=== PATIENT | female | born 1990 | race Hispanic/Latino ===

== ENCOUNTER 2018-03-25 20:50 | Emergency (ER) | payer SELFPAY ==
[2018-03-25 21:57] VITALS: BP 139/94; PULSE 108; RESP 20; TEMP 98; O2SAT 99
[2018-03-25 22:52] LABS: SQUAMOUS EPITHIAL 1 /hpf (0-5); URINE BACTERIA RARE (<OCC); URINE BILIRUBIN NEGATIVE (NEGATIVE); URINE BLOOD 1+ (NEGATIVE); URINE CLARITY Hazy (Clear); URINE COLOR Amber (YELLOW); URINE GLUCOSE (UA) NORMAL (Normal); URINE LEUKOCYTE ESTERASE NEG Leu/uL (Negative); URINE PROTEIN NEGATIVE (NEGATIVE)
--- NOTE | 2018-03-26 00:27 | C.PDOC ---
History Of Present Illness 27 year old female is sent to the ED by PMD to rule out ectopic . Patient reports she is 4 weeks by date, her LMP was on 01/2018. Patient c/o vaginal spotting for the past 2 weeks. Patient was seen by her PMD where she had a positive test. Patient has an US done which did not show an IUP. However patient's betta HCG was trending up from her first test to the second. patient was sent to the ED for US to rule out ectopic. Patient denies fever, chills, nausea, vomit, diarrhea, vaginal discharge, weakness, numbness. Time Seen by Provider: 03/25/18 21:45 Chief Complaint (Nursing): Female Genitourinary History Per: Patient History/Exam Limitations: no limitations Onset/Duration Of Symptoms: Days (2 weeks) Current Symptoms Are (Timing): Still Present Quality Of Discomfort: Cramping Associated Symptoms: denies: Chills, Nausea, Vomiting, Diarrhea, Loss Of Appetite, Urinary Symptoms Recent travel outside of the [place]: No Additional History Per: EMS Abnormal Vaginal Bleeding: Yes Last Menstral Period: 01/2018 Past Medical History Reviewed: Historical Data, Nursing Documentation, Vital Signs Vital Signs: Last Vital Signs Temp 98 F 03/25/18 21:12 Pulse 108 H 03/25/18 21:12 Resp 20 03/25/18 21:12 BP 139/94 H 03/25/18 21:12 Pulse Ox 99 03/25/18 21:12 - Medical History PMH: No Chronic Diseases Surgical History: No Surg Hx Family History: States: Unknown Family Hx - Social History Hx Alcohol Use: No Hx Substance Use: Yes (Uses Ecstasy occasionally) - Immunization History Hx Tetanus Toxoid Vaccination: No Hx Influenza Vaccination: No Hx Pneumococcal Vaccination: No Review Of Systems Constitutional: Negative for: Fever, Chills Cardiovascular: Negative for: Chest Pain Respiratory: Negative for: Shortness of Breath Gastrointestinal: Positive for: Abdominal Pain. Negative for: Nausea, Vomiting Genitourinary: Positive for: Vaginal Bleeding. Negative for: Dysuria, Hematuria Musculoskeletal: Negative for: Back Pain Skin: Negative for: Rash Neurological: Negative for: Weakness, Numbness Physical Exam - Physical Exam Appears: Non-toxic, No Acute Distress Skin: Normal Color, Warm, Dry Head: Atraumatic, Normacephalic Eye(s): bilateral: Normal Inspection Neck: Normal ROM, Supple Chest: Symmetrical Cardiovascular: Rhythm Regular Respiratory: Normal Breath Sounds, No Rales, No Rhonchi, No Wheezing Gastrointestinal/Abdominal: Soft, Tenderness (suprapubic), No Guarding, No Rebound Pelvic: Normal External Exam, Vaginal Discharge (mild bloody dc, no active bleeding) Extremity: Normal ROM, No Tenderness, No Swelling Neurological/Psych: Oriented x3, Normal Speech, Normal Cognition Gait: Steady ED Course And Treatment - Laboratory Results Lab Results: Urine Color [place] (YELLOW) 03/25/18 22:44 Urine Clarity Hazy (Clear) 03/25/18 22:44 Urine pH 6.0 (5.0-8.0) 03/25/18 22:44 Ur Specific [place] 1.017 (1.003-1.030) 03/25/18 22:44 Urine Protein Negative mg/dL (NEGATIVE) 03/25/18 22:44 Urine Glucose (UA) Normal mg/dL (Normal) 03/25/18 22:44 Urine Ketones 1+ mg/dL (NEGATIVE) H 03/25/18 22:44 Urine Blood 1+ (NEGATIVE) H 03/25/18 22:44 Urine Nitrate Negative (NEGATIVE) 03/25/18 22:44 Urine Bilirubin Negative (NEGATIVE) 03/25/18 22:44 Urine Urobilinogen 4.0 mg/dL (0.2-1.0) H 03/25/18 22:44 Ur Leukocyte Esterase Neg [place]/uL (Negative) 03/25/18 22:44 Urine WBC (Auto) 5 /hpf (0-5) 03/25/18 22:44 Urine RBC (Auto) 1 /hpf (0-3) 03/25/18 22:44 Ur Squamous Epith Cells 1 /hpf (0-5) 03/25/18 22:44 Urine Bacteria Rare (<OCC) 03/25/18 22:44 Beta HCG, Quant 3398.20 mIU/ML 03/25/18 22:44 O2 Sat by Pulse Oximetry: 99 (ON RA) Pulse Ox Interpretation: Normal - CT Scan/US pelvic US Other Rad Studies (CT/US): Read By Radiologist, Radiology Report Reviewed CT/US Interpretation: Date of service: 03/25/2018. HISTORY: vaginal spotting and suprapubic pain. COMPARISON: None available. TECHNIQUE: Transabdominal and transvaginal pelvic ultrasound was performed. FINDINGS: UTERUS: Measures 7.5 x 4.1 x 4.8 cm. Anteverted, normal in size and appearance. No fibroid or other mass lesion seen. ENDOMETRIUM: Measures 8.0 mm in diameter. The central endometrial echo complex is normal in appearance. No evidence of intrauterine gestational sac. CERVIX: A nabothian cyst is identified in the posterior wall. RIGHT OVARY: Measures 2.4 x 1.3 x 1.8 cm. No solid mass. Normal flow. LEFT OVARY: Measures 3.0 x 2.1 x 2.7 cm. No solid mass. Normal flow. There is a 1.6 x 1.2 x 1.1 cm cystic structure likely a simple cyst/involuting follicle. FREE FLUID: No significant free fluid noted. OTHER FINDINGS: None. IMPRESSION: No evidence of intrauterine gestational sac. No adnexal mass. No free fluid in the pelvis. Ectopic cannot be entirely excluded in the setting of positive beta HCG. Clinical and ultrasound follow-up is recommended. Progress Note: Plan: - Labs. - UA. - Us pelvic Disposition Counseled Patient/Family Regarding: Diagnosis, Need For Followup - Disposition Referrals: Your HUMAN SERVICES PROFESSIONAL, Office [Other] Disposition: HOME/ ROUTINE Disposition Time: 00:48 Condition: STABLE Additional Instructions: Please follw up with your OB tomorrow or Return to ER if severe pain, dizziness, Heavy bleeding or worse Instructions: Threatened Miscarriage (DC) Forms: Work/School/Gym Excuse, [facility] (Bangladeshi) - Clinical Impression Clinical Impression: Threatened - PA / ROLL CUTTER / Resident Statement MD/DO has reviewed & agrees with the documentation as recorded. - Scribe Statement The provider has reviewed the documentation as recorded by the Scribe Fco Johnson All medical record entries made by the Carroll were at my direction and personally dictated by me. I have reviewed the chart and agree that the record accurately reflects my personal performance of the history, physical exam, medical decision making, and the department course for this patient. I have also personally directed, reviewed, and agree with the discharge instructions and disposition.
--- NOTE | 2018-03-26 00:37 | US ---
Date of service: 03/25/2018 HISTORY: vaginal spotting and suprapubic pain COMPARISON: None available. TECHNIQUE: Transabdominal and transvaginal pelvic ultrasound was performed. FINDINGS: UTERUS: Measures 7.5 x 4.1 x 4.8 cm. Anteverted, normal in size and appearance. No fibroid or other mass lesion seen. ENDOMETRIUM: Measures 8.0 mm in diameter. The central endometrial echo complex is normal in appearance. No evidence of intrauterine gestational sac. CERVIX: A nabothian cyst is identified in the posterior wall. RIGHT OVARY: Measures 2.4 x 1.3 x 1.8 cm. No solid mass. Normal flow. LEFT OVARY: Measures 3.0 x 2.1 x 2.7 cm. No solid mass. Normal flow. There is a 1.6 x 1.2 x 1.1 cm cystic structure likely a simple cyst/involuting follicle. FREE FLUID: No significant free fluid noted. OTHER FINDINGS: None. IMPRESSION: No evidence of intrauterine gestational sac. No adnexal mass. No free fluid in the pelvis. Ectopic cannot be entirely excluded in the setting of positive beta HCG. Clinical and ultrasound follow-up is recommended.
== END 2018-03-26 00:58 | disposition home or self-care (01) ==
LOC: C.ER 20:50
DX: O20.0 Threatened abortion (principal); Z3A.01 Less than 8 weeks gestation of pregnancy

== ENCOUNTER 2018-03-26 16:10 | Emergency (ER) | payer OTHER ==
[2018-03-26] MEDS ORDERED: Sodium Chloride 0.9% 1,000 ML IV ONE (19:53)
--- NOTE | 2018-03-26 19:55 | C.PDOC ---
History Of Present Illness 27 year old female sent in by Dr. Krishnan for admission and possible D/C for ectopic . Patient currently complains of lower abdominal pain and vaginal bleeding. She has been seen here several times for the same and was seen at Dr. Krishnan's office today. Denies nausea or vomiting. Chief Complaint (Nursing): Female Genitourinary History Per: Patient History/Exam Limitations: no limitations Onset/Duration Of Symptoms: Days Current Symptoms Are (Timing): Still Present Quality Of Discomfort: Unable To Describe Associated Symptoms: denies: Nausea, Vomiting Alleviating Factors: None Recent travel outside of the [place]: No Abnormal Vaginal Bleeding: Yes Past Medical History Reviewed: Historical Data, Nursing Documentation, Vital Signs Vital Signs: Last Vital Signs Temp 98.5 F 03/26/18 19:19 Pulse 118 H 03/26/18 19:19 Resp 22 03/26/18 19:19 BP 133/88 03/26/18 19:19 Pulse Ox 100 03/26/18 19:19 Family History: States: Unknown Family Hx - Social History Hx Alcohol Use: Yes Hx Substance Use: Yes (Uses Ecstasy occasionally) - Immunization History Hx Tetanus Toxoid Vaccination: No Hx Influenza Vaccination: No Hx Pneumococcal Vaccination: No Review Of Systems Constitutional: Negative for: Fever, Chills Cardiovascular: Negative for: Chest Pain, Palpitations Respiratory: Negative for: Cough, Shortness of Breath Gastrointestinal: Positive for: Abdominal Pain. Negative for: Nausea, Vomiting Genitourinary: Positive for: Vaginal Bleeding Neurological: Negative for: Weakness, Numbness Physical Exam - Physical Exam Appears: Non-toxic Skin: Normal Color, Warm, Dry Head: Atraumatic, Normacephalic Eye(s): bilateral: Normal Inspection Oral Mucosa: Moist Chest: Symmetrical, No Tenderness Cardiovascular: Rhythm Regular Respiratory: Normal Breath Sounds, No Rales, No Rhonchi, No Wheezing Gastrointestinal/Abdominal: Soft, Tenderness (Hypogastric), No Guarding, No Rebound Back: No CVA Tenderness Neurological/Psych: Oriented x3, Normal Speech ED Course And Treatment - Laboratory Results Result Diagrams: 03/26/18 20:19 03/26/18 20:19 O2 Sat by Pulse Oximetry: 100 (Room air) Pulse Ox Interpretation: Normal Progress Note: Blood work ordered. IV fluids administered. Dr. Krishnan called and notified. Disposition Discussed With : Vikram Krishnan Doctor Will See Patient In The: Office Counseled Patient/Family Regarding: Diagnosis - Disposition Referrals: Vikram Krishnan MD [Staff Provider] - Disposition: HOME/ ROUTINE Disposition Time: 02:32 Condition: STABLE Instructions: Ectopic (DC) Forms: [facility] (Yi) - POA Present On Arrival: None - Clinical Impression Clinical Impression: Ectopic without intrauterine - Scribe Statement The provider has reviewed the documentation as recorded by the Scribmariel Odonnell All medical record entries made by the Scribe were at my direction and personally dictated by me. I have reviewed the chart and agree that the record accurately reflects my personal performance of the history, physical exam, medical decision making, and the department course for this patient. I have also personally directed, reviewed, and agree with the discharge instructions and disposition.
[2018-03-26] MEDS ORDERED: Sodium Chloride 0.9% 1,000 ML ONE (20:22)
[2018-03-26 20:23] LABS: BASO # 0.1 K/uL (0.0-0.2); BASO % 0.5 % (0.0-2.0); EOS # 0.1 K/uL (0.0-0.7); EOS % 1.2 % (0.0-4.0); HEMOGLOBIN 13.9 g/dL (11.0-16.0); LYMPH # 1.9 K/uL (1.0-4.3); LYMPH % 19.3 % (20.0-40.0); MEAN CELL VOLUME 93.1 fL (81.0-99.0); MEAN CORPUSCULAR HEMOGLOBIN 31.4 pg (27.0-31.0); MEAN CORPUSCULAR HGB CONC 33.8 g/dL (33.0-37.0); MEAN PLATELET VOLUME 8.6 fL (7.2-11.7); MONO # 0.8 K/uL (0.0-0.8); MONO % 7.9 % (0.0-10.0); NEUT # 6.9 K/uL (1.8-7.0); NEUT % 71.1 % (50.0-75.0); RBC 4.43 Mil/uL (3.80-5.20); RED CELL DISTRIBUTION WIDTH 12.4 % (11.5-14.5); WHITE BLOOD COUNT 9.6 K/uL (4.8-10.8)
[2018-03-26 20:34] LABS: INR 1.2; PROTHROMBIN TIME 13.3 SECONDS (9.7-12.2)
[2018-03-26 20:38] LABS: ALB/GLOB RATIO 1.5 (1.0-2.1); ALBUMIN 4.8 g/dL (3.5-5.0); ALT/SGPT 21 U/L (9-52); AST/SGOT 15 U/L (14-36); BLOOD UREA NITROGEN 9 mg/dL (7-17); CALCIUM 9.4 mg/dl (8.6-10.4); GFR NON-AFRICAN AMERICAN > 60
[2018-03-27 02:55] VITALS: BP 115/78; PULSE 92; RESP 14; TEMP 98.2; O2SAT 98
--- NOTE | 2018-03-27 09:57 | US ---
Date of service: 03/26/2018 HISTORY: , bleeding COMPARISON: None available. TECHNIQUE: Transvaginal FINDINGS: UTERUS: Measures 7.5 x 4.1 x 5.0 cm. Normal in size and appearance. No fibroid or other mass lesion seen. ENDOMETRIUM: Measures 10 mm in diameter. No intrauterine gestational sac identified. Cannot exclude ectopic . Please correlate with serial beta HCG evaluation. CERVIX: No cervical abnormality identified. RIGHT OVARY: Measures 2.8 x 1.5 x 2.1 cm. No solid mass. Normal flow. LEFT OVARY: Measures 2.8 x 2.1 x 2.6 cm. No solid mass. Normal flow. FREE FLUID: No significant free fluid noted. OTHER FINDINGS: None. IMPRESSION: Unremarkable pelvic ultrasound examination. No intrauterine gestation identified. Cannot exclude ectopic on the basis of this examination, in the absence of an intrauterine gestational sac. The preliminary findings for this examination were reported by [facility] Radiology at 11:12 p.m. on 03/26/2018. There is concurrence of this report with the preliminary findings.
== END 2018-03-27 03:07 | disposition home or self-care (01) ==
LOC: C.ER 16:10
DX: O00.90 Unspecified ectopic pregnancy without intrauterine pregnancy (principal)
CPT/HCPCS: 76830; 80053; 84702; 85025; 85610; 85730; 86850; 86900; 99285; J7030; J8610

== ENCOUNTER 2018-03-28 13:30 | Emergency (ER) | payer OTHER ==
[2018-03-28 13:43] VITALS: TEMP 98; O2SAT 99
[2018-03-28 14:36] LABS: BASO % 0.3 % (0.0-2.0); EOS # 0.2 K/uL (0.0-0.7); EOS % 2.1 % (0.0-4.0); HEMOGLOBIN 13.4 g/dL (11.0-16.0); LYMPH # 1.6 K/uL (1.0-4.3); LYMPH % 17.7 % (20.0-40.0); MEAN CELL VOLUME 93.6 fL (81.0-99.0); MEAN CORPUSCULAR HEMOGLOBIN 31.7 pg (27.0-31.0); MEAN CORPUSCULAR HGB CONC 33.8 g/dL (33.0-37.0); MEAN PLATELET VOLUME 8.4 fL (7.2-11.7); MONO # 0.7 K/uL (0.0-0.8); MONO % 8.1 % (0.0-10.0); NEUT # 6.5 K/uL (1.8-7.0); NEUT % 71.8 % (50.0-75.0); RBC 4.22 Mil/uL (3.80-5.20); RED CELL DISTRIBUTION WIDTH 12.3 % (11.5-14.5); WHITE BLOOD COUNT 9.1 K/uL (4.8-10.8)
--- NOTE | 2018-03-28 14:42 | C.PDOC ---
History Of Present Illness 27 year old female presents to the ED for evaluation. Patient was evaluated in this ED on 03/25 and 03/26 and had increasing beta hcg from 3398 to over 4000, respectively with no iup noted on transvaginal sonogram, Patient was given 16mg PO Methotrexate on 03/26 for ectopic . She was instructed by Dr. Krishnan to return today for an additional dose of im Methotrexate and repeat bloodwork. Patient denies abdominal pain, vaginal bleeding/discharge. Time Seen by Provider: 03/28/18 13:54 Chief Complaint (Nursing): Medical Clearance History Per: Patient History/Exam Limitations: no limitations Onset/Duration Of Symptoms: Days Current Symptoms Are (Timing): Still Present Additional History Per: Patient Past Medical History Reviewed: Historical Data, Nursing Documentation, Vital Signs Vital Signs: Last Vital Signs Temp 98 F 03/28/18 13:40 Pulse 100 H 03/28/18 13:40 Resp 20 03/28/18 13:40 BP 114/79 03/28/18 13:40 Pulse Ox 99 03/28/18 13:40 - Medical History PMH: No Chronic Diseases Surgical History: No Surg Hx Family History: States: Unknown Family Hx - Social History Hx Alcohol Use: Yes Hx Substance Use: Yes (Uses Ecstasy occasionally) - Immunization History Hx Tetanus Toxoid Vaccination: No Hx Influenza Vaccination: No Hx Pneumococcal Vaccination: No Review Of Systems Constitutional: Negative for: Fever, Malaise Gastrointestinal: Negative for: Nausea, Vomiting, Abdominal Pain Genitourinary: Negative for: Vaginal Discharge, Vaginal Bleeding Skin: Negative for: Rash Neurological: Negative for: Weakness, Numbness Physical Exam - Physical Exam Appears: Non-toxic, No Acute Distress Skin: Normal Color, Warm, Dry Head: Atraumatic, Normacephalic Eye(s): bilateral: Normal Inspection Oral Mucosa: Moist Neck: Supple Chest: Symmetrical, No Deformity, No Tenderness Cardiovascular: Rhythm Regular, No Murmur Respiratory: Normal Breath Sounds, No Rales, No Rhonchi, No Wheezing Gastrointestinal/Abdominal: Soft, No Tenderness, No Guarding, No Rebound Extremity: Normal ROM, Capillary Refill (less than 2 seconds ) Neurological/Psych: Oriented x3, Normal Speech, Normal Cognition ED Course And Treatment - Laboratory Results Result Diagrams: 03/28/18 14:31 03/28/18 14:31 O2 Sat by Pulse Oximetry: 99 (on RA) Pulse Ox Interpretation: Normal Medical Decision Making Medical Decision Making: Plan: * beta HCG * CBC * CMP * reassess and disposition Progress: 1613 pt with increasing serum beta hcg; received IM methotrexate shot in ED. discussed with Dr Krishnan; pt to f/u on day 4 (saturday) in her office for repeat bhcg. explained to patient who understands plan and ectopic precautions. Disposition Discussed With Dr.: Vikram Krishnan Doctor Will See Patient In The: Office Counseled Patient/Family Regarding: Studies Performed, Diagnosis, Need For Followup - Disposition Referrals: Vikram Krishnan MD [Staff Provider] - Disposition: HOME/ ROUTINE Disposition Time: 16:14 Condition: GOOD Additional Instructions: Follow up with Dr Krishnan in her [place] office on SaturdayMar 31, between 1 and 2 pm for further bloodwork to make sure hormone going down. Avoid heavy lifting. No sexual intercourse for now. Return to ER for any dizziness, lightheadedness, heavy vaginal bleeding, abdominal pain or any other concerns. Instructions: Ectopic (DC) Forms: [facility] (I[place]ic), General Discharge Instructions - Clinical Impression Clinical Impression: Ectopic without intrauterine - PA / SOLAR PANEL INSTALLER / Resident Statement MD/DO has reviewed & agrees with the documentation as recorded. - Scribe Statement The provider has reviewed the documentation as recorded by the Scribe (Debra Carpenter) All medical record entries made by the Scribe were at my direction and personally dictated by me. I have reviewed the chart and agree that the record accurately reflects my personal performance of the history, physical exam, m edical decision making, and the department course for this patient. I have also personally directed, reviewed, and agree with the discharge instructions and disposition.
[2018-03-28 15:10] LABS: ALB/GLOB RATIO 1.6 (1.0-2.1); ALBUMIN 4.6 g/dL (3.5-5.0); ALT/SGPT 26 U/L (9-52); AST/SGOT 14 U/L (14-36); BLOOD UREA NITROGEN 8 mg/dL (7-17); CALCIUM 9.1 mg/dl (8.6-10.4); GFR NON-AFRICAN AMERICAN > 60
[2018-03-28] MEDS ORDERED: Methotrexate 50 mg/2 ml Inj IM ONE ×4 (15:12→15:45)
[2018-03-28 16:28] VITALS: BP 107/93; PULSE 96; RESP 18
== END 2018-03-28 16:31 | disposition home or self-care (01) ==
LOC: C.ER 13:30
DX: O00.90 Unspecified ectopic pregnancy without intrauterine pregnancy (principal); Z3A.00 Weeks of gestation of pregnancy not specified
CPT/HCPCS: 80053; 84702; 85025; 96372; 99282; J9250